=== PATIENT | male | born 1970 | race Two or more races ===

== ENCOUNTER → 2022-10-18 | Outpatient (CLI) | payer MEDICAID ==
[2022-10-18 12:03] LABS: BUN/Creatinine Ratio 17.8 (10.0-20.0); Calcium 9.4 mg/dL (8.5-10.1); Potassium 4.1 mmol/L (3.5-5.1)
== END | disposition home or self-care (01) ==
LOC: LAB 09:49
PROVIDERS: ATTEND Urology
DX: N40.1 Benign prostatic hyperplasia with lower urinary tract symptoms (principal)
CPT/HCPCS: 36415; 80048; 84153

== ENCOUNTER 2022-12-25 10:49 | Emergency (ER) | payer MEDICAID ==
[~2022-12-25] VITALS: Ht 170.2 cm; Wt 77.6 kg
[2022-12-25 11:50] VITALS: BP 114/78
[2022-12-25] MEDS ORDERED: ZOFR4T PO (13:06)
[2022-12-25] MEDS ORDERED: DEXT60TA4 PO (13:06)
== END 2022-12-25 13:07 | disposition home or self-care (01) ==
LOC: ER 10:49
DX: U07.1 COVID-19 (principal); K21.9 Gastro-esophageal reflux disease without esophagitis; Z98.890 Other specified postprocedural states
CPT/HCPCS: 36415; 87426; 87804

== ENCOUNTER → 2023-01-18 | Outpatient (CLI) | payer MEDICAID ==
[~2023-01-18] MED LIST: DEXT60TA4 PO; ZOFR4T PO
[2023-01-18 09:09] LABS: Basophils # (auto) 0 10 ^3/uL (0-0.2); Basophils % (auto) 0.2 % (0.0-2.0); Eosinophils # (auto) 0.1 10 ^3/uL (0-0.8); Eosinophils % (auto) 1.7 % (0.0-7.0); Hematocrit 41.6 % (41.0-53.0); Hemoglobin 14.2 g/dL (13.5-17.5); Lymphocytes # (auto) 1.6 10 ^3/uL (0.4-5.4); Lymphocytes % (auto) 25.5 % (10.0-50.0); Mean Corpuscular Hemoglobin 30.1 pg (28.0-32.0); Mean Corpuscular Hgb Conc. 34.1 g/dL (32.0-36.0); Mean Corpuscular Volume 88.2 fL (80.0-100.0); Monocytes # (auto) 0.8 10 ^3/uL (0-1.3); Monocytes % (auto) 12.4 % (0.0-12.0); Neutrophils # (auto) 3.9 10 ^3/uL (1.6-8.6); Neutrophils % (auto) 60.2 % (37.0-80.0); Nucleated Red Blood Cells % 0.1 %; Red Blood Cells 4.72 10^6/uL (4.5-5.90); Red Cell Distribution Width 13.8 % (11.8-14.3); White Blood Cell 6.4 10^3/uL (4.4-10.8)
[2023-01-18 09:18] LABS: Urine Bacteria NONE SEEN /hpf (None Seen); Urine Blood Negative /uL (Negative); Urine Mucus FEW (None Seen); Urine Specific Gravity 1.014 (1.001-1.035); Urine WBC <1 /hpf (0 - 3)
[2023-01-18 09:45] LABS: Albumin 3.8 g/dL (3.4-5.0); Calcium 8.8 mg/dL (8.5-10.1); Potassium 4.3 mmol/L (3.5-5.1)
[2023-01-18 09:51] LABS: BUN/Creatinine Ratio 16.7 (10.0-20.0); Bilirubin, Total 0.4 mg/dL (0.2-1.0); Total Protein 8.3 g/dL (6.4-8.2)
== END | disposition home or self-care (01) ==
LOC: LAB 08:26
PROVIDERS: ATTEND Nurse Practitioner
DX: I10 Essential (primary) hypertension (principal); E78.5 Hyperlipidemia, unspecified; R73.9 Hyperglycemia, unspecified
CPT/HCPCS: 36415; 80053; 80061; 81001; 83036; 84443; 85025

== ENCOUNTER 2023-08-01 07:17 | Inpatient (IN) | payer MEDICAID ==
[2023-07-29 15:34] LABS: Urine Epithelial Cast None Seen /hpf (<5)
[2023-07-29 15:40] LABS: Basophils # (auto) 0 10 ^3/uL (0-0.2); Basophils % (auto) 0.3 % (0.0-2.0); Eosinophils # (auto) 0.1 10 ^3/uL (0-0.8); Eosinophils % (auto) 1.7 % (0.0-7.0); Hematocrit 42.2 % (41.0-53.0); Hemoglobin 14.3 g/dL (13.5-17.5); Lymphocytes # (auto) 2.1 10 ^3/uL (0.4-5.4); Lymphocytes % (auto) 29.9 % (10.0-50.0); Mean Corpuscular Hemoglobin 29.9 pg (28.0-32.0); Mean Corpuscular Hgb Conc. 33.8 g/dL (32.0-36.0); Mean Corpuscular Volume 88.4 fL (80.0-100.0); Monocytes # (auto) 0.8 10 ^3/uL (0-1.3); Monocytes % (auto) 11.4 % (0.0-12.0); Neutrophils % (auto) 56.7 % (37.0-80.0); Red Blood Cells 4.77 10^6/uL (4.5-5.90); Red Cell Distribution Width 14.3 % (11.8-14.3)
[2023-07-29 15:48] LABS: Urine Amorphous Crystal FEW /hpf (None Seen); Urine Bacteria NONE SEEN /hpf (None Seen); Urine Blood Negative /uL (Negative); Urine Clarity HAZY (Clear); Urine Color Yellow (Yellow); Urine Protein, UAD Negative (Negative); Urine Specific Gravity 1.019 (1.001-1.035); Urine Urobilinogen Normal (Negative); Urine WBC 1 /hpf (0 - 3)
[2023-07-29 16:03] LABS: INR 1.03 (0.9-1.15); Partial Thromboplastin Time 29.3 SEC (24.5-34.5); Prothrombin Time 10.8 sec (9.3-11.8)
[2023-07-29 16:34] LABS: Alanine Aminotransferase 37 U/L (7-40); Alkaline Phosphatase 74 U/L (46-116); Anion Gap 6 (5-15); Aspartate Aminotransferase 23 U/L (13-40); BUN/Creatinine Ratio 16.2 (10.0-20.0); Blood Urea Nitrogen 11 mg/dL (9-23); Calcium 8.9 mg/dL (8.7-10.4); Carbon Dioxide 27 mmol/L (20-30); Chloride 106 mmol/L (98-107); Glucose 99 mg/dL (74-106); Potassium 3.8 mmol/L (3.5-5.1); Sodium 139 mmol/L (136-145)
[2023-07-29 16:35] LABS: Albumin 4.6 g/dL (3.2-4.8); Bilirubin, Total 0.6 mg/dL (0.2-1.0); Total Protein 7.6 g/dL (5.7-8.2)
[~2023-08-01] VITALS: Ht 162.6 cm; Wt 76.6 kg
[~2023-08-01 07:17] MED LIST changes: -DEXT60TA4 PO; +OMEP-434 PO; -ZOFR4T PO
[2023-08-01] MEDS: FAMOTIDINE (10MG/ML) 2ML VL IV ONE (08:14)
[2023-08-01] MEDS ORDERED: fentaNYL CITRATE 100 MCG/2 ML VL ONE (08:18)
[2023-08-01] MEDS ORDERED: MIDAZOLAM HCL 2MG/2ML 2ml VIAL (1mg/ml) ONE (08:18)
[2023-08-01] MEDS ORDERED: MEPERIDINE HCL (50 MG/ML) 1 ML VIAL ONE (08:18)
[2023-08-01] MEDS ORDERED: KETOROLAC TROMETH 30 MG/ML 1ML VIAL ONE (08:19)
[2023-08-01] MEDS ORDERED: ONDANSETRON HCL 4 MG/2 ML VIAL ONE (08:19)
[2023-08-01] MEDS ORDERED: GLYCOPYRROLATE 0.2 MG/ML 1ML VIAL ONE (08:19)
[2023-08-01] MEDS ORDERED: PROPOFOL 10 MG/ML 20 ML IV ONE (08:19)
[2023-08-01] MEDS ORDERED: DexAMETHasone SOD PHOS 10MG/1ML VIAL INJ ONE (08:19)
[2023-08-01] MEDS ORDERED: LIDOCAINE 2% (LOCAL ANESTH.) PF 5ml SDV ONE (08:19)
[2023-08-01] MEDS ORDERED: ePHEDrine SULFATE 50 MG/ML AMP ONE (08:57)
[2023-08-01 09:14] VITALS: O2SAT 93
[2023-08-01] MEDS ORDERED: NITROGLYCERIN 0.4 MG SL TAB SL PRN (09:30)
[2023-08-01] MEDS ORDERED: ONDANSETRON HCL 4 MG/2 ML VIAL IV PRN ×2 (09:30→16:30)
[2023-08-01] MEDS ORDERED: MORPHINE SULFATE INJ 2 MG/ml SYRG IV PRN (09:30)
[2023-08-01] MEDS: HYDROmorphone HCL 2 MG/ML VL/or syr IV PRN (09:58)
[2023-08-01 13:12] VITALS: BP 102/64; PULSE 97; RESP 20; TEMP 98.1
[2023-08-01 13:15] VITALS: BP 107/63; PULSE 97; RESP 20; TEMP 98.1; O2SAT 98
[2023-08-01 16:55] VITALS: BP 107/63; PULSE 76; RESP 18; TEMP 97.3; O2SAT 96
[2023-08-01] MEDS: MORPHINE SULFATE INJ 2 MG/ml SYRG IV PRN (17:13)
[2023-08-01] MEDS: cefTRIAXone 1GM/50ML D5W 50 ML IV ONE (17:14)
[2023-08-01] MEDS: HYDROcodone-ACET 5/325MG TAB PO PRN (18:23)
[2023-08-01 20:00] VITALS: BP 104/60; PULSE 64; RESP 18; TEMP 98.9; O2SAT 98
[2023-08-01] MEDS: ACETAMINOPHEN 325 MG TAB PO PRN (21:45)
[2023-08-01 22:00] VITALS: BP 104/60; PULSE 64; RESP 18; TEMP 98.4; O2SAT 98
[2023-08-02 05:00] VITALS: BP 83/44; PULSE 70; RESP 18; TEMP 98.6; O2SAT 100
[2023-08-02 06:51] LABS: Basophils # (auto) 0 10 ^3/uL (0-0.2); Basophils % (auto) 0.1 % (0.0-2.0); Eosinophils # (auto) 0 10 ^3/uL (0-0.8); Eosinophils % (auto) 0.1 % (0.0-7.0); Hematocrit 38.7 % (41.0-53.0); Lymphocytes # (auto) 1.4 10 ^3/uL (0.4-5.4); Lymphocytes % (auto) 12.5 % (10.0-50.0); Mean Corpuscular Hemoglobin 29.8 pg (28.0-32.0); Mean Corpuscular Hgb Conc. 33.5 g/dL (32.0-36.0); Monocytes % (auto) 8.6 % (0.0-12.0); Neutrophils # (auto) 8.7 10 ^3/uL (1.6-8.6); Neutrophils % (auto) 78.7 % (37.0-80.0); Red Blood Cells 4.35 10^6/uL (4.5-5.90); Red Cell Distribution Width 14.2 % (11.8-14.3); White Blood Cell 11.1 10^3/uL (4.4-10.8)
[2023-08-02 07:11] LABS: Alanine Aminotransferase 27 U/L (7-40); Albumin 4.3 g/dL (3.2-4.8); Alkaline Phosphatase 66 U/L (46-116); Anion Gap 10 (5-15); Aspartate Aminotransferase 21 U/L (13-40); BUN/Creatinine Ratio 12.7 (10.0-20.0); Bilirubin, Total 0.9 mg/dL (0.2-1.0); Blood Urea Nitrogen 9 mg/dL (9-23); Calcium 9.4 mg/dL (8.5-10.1); Carbon Dioxide 23 mmol/L (20-30); Chloride 105 mmol/L (98-107); Glucose 105 mg/dL (74-106); Potassium 3.9 mmol/L (3.5-5.1); Sodium 138 mmol/L (136-145)
[2023-08-02 08:00] VITALS: BP 104/65; PULSE 61; RESP 14; TEMP 98.4; O2SAT 93
[2023-08-02 09:00] VITALS: BP 104/65; PULSE 61; RESP 12; TEMP 98.4; O2SAT 93
[2023-08-02] MEDS: cefTRIAXone 1GM/50ML D5W 50 ML IV SCH (10:02)
[2023-08-02] MEDS: PANTOPRAZOLE 40 MG TAB PO SCH (10:02)
[2023-08-02 12:56] VITALS: BP 110/66; PULSE 72; RESP 18; TEMP 97.5; O2SAT 95
[2023-08-02 15:22] VITALS: BP 112/71; PULSE 61; RESP 16; TEMP 36.4; O2SAT 96
[2023-08-02 16:52] VITALS: BP 103/68; PULSE 58; RESP 18; TEMP 97.6; O2SAT 94
== END 2023-08-02 16:00 | disposition home or self-care (01) | DRG 501 ==
LOC: SUR 07:17 → OVERFLOW 09:17 → WEST WING 13:54
PROVIDERS: ADMIT Urology; ATTEND Urology
PROC: 0T7D8DZ Dilation of Urethra with Intraluminal Device, Via Natural or Artificial Opening Endoscopic (ICD-10-PCS; principal; 2023-08-01 08:37)
DX: N40.1 Benign prostatic hyperplasia with lower urinary tract symptoms (principal); K29.70 Gastritis, unspecified, without bleeding; N35.919 Unspecified urethral stricture, male, unspecified site; R35.1 Nocturia; N39.498 Other specified urinary incontinence; R30.0 Dysuria
CPT/HCPCS: 36415; 80053; 81001; 85025; 85610; 85730; 87086; G0378; J1100; J1885; J2001; J2250; J2405; J2704; J3490

== ENCOUNTER → 2023-08-26 | Outpatient (CLI) | payer MEDICAID ==
[2023-08-26 09:22] LABS: Basophils # (auto) 0 10 ^3/uL (0-0.2); Basophils % (auto) 0.3 % (0.0-2.0); Eosinophils # (auto) 0.3 10 ^3/uL (0-0.8); Eosinophils % (auto) 5.6 % (0.0-7.0); Hematocrit 43.3 % (41.0-53.0); Hemoglobin 14.2 g/dL (13.5-17.5); Lymphocytes # (auto) 2.2 10 ^3/uL (0.4-5.4); Lymphocytes % (auto) 37.4 % (10.0-50.0); Mean Corpuscular Hemoglobin 29.2 pg (28.0-32.0); Mean Corpuscular Hgb Conc. 32.8 g/dL (32.0-36.0); Mean Corpuscular Volume 88.9 fL (80.0-100.0); Monocytes # (auto) 0.7 10 ^3/uL (0-1.3); Monocytes % (auto) 11.3 % (0.0-12.0); Neutrophils # (auto) 2.7 10 ^3/uL (1.6-8.6); Neutrophils % (auto) 45.4 % (37.0-80.0); Nucleated Red Blood Cells % 0.1 %; Red Blood Cells 4.86 10^6/uL (4.5-5.90); Red Cell Distribution Width 14.1 % (11.8-14.3)
[2023-08-26 10:16] LABS: Urine Bacteria NONE SEEN /hpf (None Seen); Urine Blood 1+ /uL (Negative); Urine Clarity Clear (Clear); Urine Color Yellow (Yellow); Urine Mucus FEW (None Seen); Urine Protein, UAD TRACE (Negative); Urine Specific Gravity 1.027 (1.001-1.035); Urine Urobilinogen Normal (Negative); Urine WBC 1 /hpf (0 - 3); Urine pH 5.5 (5.0-8.0)
[2023-08-26 10:32] LABS: Alanine Aminotransferase 71 U/L (7-40); Albumin 4.5 g/dL (3.2-4.8); Alkaline Phosphatase 85 U/L (46-116); Anion Gap 6 (5-15); BUN/Creatinine Ratio 17.1 (10.0-20.0); Bilirubin, Total 0.6 mg/dL (0.2-1.0); Blood Urea Nitrogen 13 mg/dL (9-23); Calcium 9.2 mg/dL (8.5-10.1); Carbon Dioxide 27 mmol/L (20-30); Chloride 108 mmol/L (98-107); Cholesterol 188 mg/dL (< 200); Glucose 92 mg/dL (74-106); HDL Cholesterol 41 mg/dL (40-59); LDL Cholesterol 141 mg/dL (< 100); Potassium 3.9 mmol/L (3.5-5.1); Sodium 141 mmol/L (136-145); Total Protein 7.1 g/dL (5.7-8.2); Triglycerides 63 mg/dL (< 150)
[2023-08-26 10:48] LABS: Aspartate Aminotransferase 42 U/L (13-40)
== END | disposition home or self-care (01) ==
LOC: LAB 08:45
PROVIDERS: ATTEND Nurse Practitioner
DX: I10 Essential (primary) hypertension (principal); E78.5 Hyperlipidemia, unspecified
CPT/HCPCS: 36415; 80053; 80061; 81001; 83036; 84153; 84443; 85025

== ENCOUNTER 2024-05-28 08:35 | Emergency (ER) | payer MEDICAID ==
[~2024-05-28] VITALS: Ht 162.6 cm; Wt 79.7 kg
[2024-05-28 08:55] VITALS: RESP 18
[2024-05-28 09:05] VITALS: BP 142/86; PULSE 63; O2SAT 96
--- NOTE | 2024-05-28 09:08 | ED.PDOC ---
History of Present Illness HPI Comments A 53 YEAR OLD MALE PRESENTS TO THE ED WITH COMPLAINT OF RIGHT FINGERS LOCKED UP. PATIENT REPORTS THAT HE HAD WOKEN UP AT 1AM WITH HIS RIGHT MIDDLE AND RING FINGERS LOCKED INTO PLACE, BEING UNABLE TO STRETCH THEM OUT AND CAUSING PAIN WHEN ATTEMPTING TO DO SO. PATIENT RELAYS THAT HE HAS NOT INJURED HIS HAND AT ALL AND DID NOT FALL ONTO IT. PATIENT DENIES NUMBNESS, WEAKNESS, TINGLING, OR OTHER COMPLAINTS. NO OTHER SYMPTOMS OR MODIFYING FACTORS AT THIS TIME. Chief Complaint: Upper Extremity Time Seen by MD: 09:05 Reviewed Notes: Nurses Notes, Medications, Allergies Allergies: Coded Allergies: No Known Drug Allergy (Verified Allergy, Unknown, 12/25/22) Home Meds Active Scripts Baclofen (Baclofen) 10 Mg Tab, 10 MG PO BID, #20 TAB Prov:SHELLY BISWAS 05/28/24 Naproxen (Naproxen) 500 Mg Tab, 500 MG PO BID, #20 TAB Prov:SHELLY BISWAS 05/28/24 Reported Medications Omeprazole Magnesium (Omeprazole) 20 Mg Tab, 40 MG PO PRN, TAB 07/29/23 Information Source: Patient Mode of Arrival: Ambulatory Severity: Moderate Timing: Hours Duration: Since onset Prehospital treatment: None Medication Refill: For: Other (RIGHT 3RD/4TH FINGER SPASM ) Past Medical History PAST MEDICAL HISTORY: Anxiety Surgical History: Denies all surgeries Family History Family History: Reviewed,noncontributory to illness Social History Smoker: Non-Smoker Alcohol: Denies ETOH Use Drugs: Denies Drug Use Lives In: Home Constitutional: reports: others (ANXIOUS ); denies: chills, diaphoresis, fatigue, fever, malaise, sweats, weakness EENTM: denies: blurred vision, double vision, ear bleeding, ear discharge, ear drainage, ear pain, ear ringing, eye pain, eye redness, hearing loss, mouth pain, mouth swelling, nasal discharge, nose bleeding, nose congestion, nose pain, photophobia, tearing, throat pain, throat swelling, voice changes, others Respiratory: denies: cough, hemoptysis, orthopnea, SOB at rest, shortness of breath, SOB with excertion, stridor, wheezing, others Cardiovascular: denies: chest pain, dizzy spells, diaphoresis, Dyspnea on exertion, edema, irregular heart beat, left arm pain, lightheadedness, palpitations, PND, syncope, others Gastrointestinal: denies: abdomen distended, abdominal pain, blood streaked bowels, constipated, diarrhea, dysphagia, difficulty swallowing, hematemesis, melena, nausea, poor appetite, poor fluid intake, rectal bleeding, rectal pain, vomiting, others Genitourinary: denies: burning, dysuria, flank pain, frequency, hematuria, incontinence, penile discharge, penile sore, pain, testicle pain, testicle swelling, urgency, others Neurological: denies: dizziness, fainting, headache, left sided numbness, left sided weakness, numbness, paresthesia, pre-existing deficit, right sided numbness, right sided weakness, seizure, speech problems, tingling, tremors, weakness, others Musculoskeletal: reports: muscle pain (RIGHT 3RD/4TH FINGER ), others (RIGHT MIDDLE AND RING FINGER SPASM); denies: back pain, gout, joint pain, joint swelling, muscle stiffness, neck pain Integumetry: denies: bruises, change in color, change in hair/nails, dryness, laceration, lesions, lumps, rash, wounds, others Allergic/Immunocompromised: denies: Difficulty Healing, Frequent Infections, Hives, Itching, others Hematologic/Lymphatic: denies: anemia, blood clots, easy bleeding, easy bruising, swollen glands, others Endocrine: denies: excessive hunger, excessive sweating, excessive thirst, excessive urination, flushing, intolerance to cold, intolerance to heat, unexplained weight gain, unexplained weight loss, others Psychiatric: denies: anxiety, bipolar disorder, depression, hopeless, panic disorder, schizophrenia, sleepless, suicidal, others All Other Systems: Reviewed and Negative Physical Exam General Appearance: No Apparent Distress, Normal HEENT: Normal ENT Inspection, PERRL/EOMI Neck: Full Range of Motion, Non-Tender, Normal, Normal Inspection Respiratory: Chest Non-Tender, Lungs Clear, No Accessory Muscle Use, No Respiratory Distress, Normal Breath Sounds Cardiovascular: No Edema, No JVD, No Murmur, No Gallop, Normal Peripheral Pulses, Regular Rate/Rhythm Breast Exam: Deferred Gastrointestinal: No Organomegaly, Non Tender, No Pulsatile Mass, Normal Bowel Sounds, Soft Genitalia: Deferred Pelvic: Deferred Rectal: Deferred Extremities: Decreased range of motion, No calf tenderness, Normal capillary refill, Normal inspection, No pedal edema, Tender (AND SPASM ON RIGHT 3RD/4TH FINGERS, NO BONY TENDERNESS, SWELLING AND DEFORMITY. ) Musculoskeletal : Apperance: Normal Neurologic: Alert, garment steamer II-XII nml as Tested, No Motor Deficits, Normal Affect, Normal Mood, No Sensory Deficits Cerebellar Function: Normal Reflexes: Normal Skin: Dry, Normal Color, Warm Peripheral Pulses: 2+ carotid (R), 2+ carotid (L), 2+ Radial (R), 2+ Radial (L) Lymphatic: No Adenopathy Was a procedure done? Was a procedure done?: No Differential Dx Considerations may include: HYPERVENTILATION SYNDROME CARPAL SPASM OF RIGHT HAND X-Ray, Labs, Meds, VS Vital Signs Date Time Temp Pulse Resp B/P (MAP) Pulse Ox O2 Delivery O2 Flow Rate FiO2 05/28/24 09:05 63 96 Room Air 05/28/24 09:05 63 142/86 (104) 96 05/28/24 08:55 98.1 63 18 142/86 (104) 96 Current Medications Medications (Trade) Dose Ordered Sig/Colin Route Start Time Stop Time Status Last Admin Lorazepam (Ativan Inj) 1 mg ONCE ONCE IM 05/28/24 09:15 05/28/24 09:16 DC 05/28/24 09:20 X-Ray, Labs, Meds, VS Comment TREATMENT: ATIVAN 1MG AFTER MEDICATION WAS GIVEN, PATIENT WAS ABLE TO MOVE RIGHT HAND WITH NORMAL RANGE OF MOTION. Time of 1ST Reevaluation: 10:00 Reevaluation 1ST: Improved Patient Education/Counseling: Diagnosis, Treatment, Need For Follow Up Family Education/Counseling: Diagnosis, Treatment, Need For Follow Up Medical Screening: No EMC Exist At This Time Departure 1 Departure Time of Disposition: 10:00 Impression: Primary Impression: Hyperventilation syndrome Additional Impression: Muscle spasm Disposition: 01 HOME / SELF CARE / HOMELESS Condition: Stable Additional Instructions: FOLLOW-UP WITH PCP IN 1 TO 2 DAYS. TAKE MEDICATIONS PRESCRIBED. RETURN TO ED FOR ANY NEW OR WORSENING SYMPTOMS. e-Prescriptions Baclofen (Baclofen) 10 Mg Tab 10 MG PO BID, #20 TAB Prov: SHELLY BISWAS 05/28/24 Naproxen (Naproxen) 500 Mg Tab 500 MG PO BID, #20 TAB Prov: SHELLY BISWAS 05/28/24 Discharged With: Self, Relative Critical Care Note Critical Care Time?: No Stability Stability form required: No Heart Score Heart Score: Heart Score Response (Comments) Value History N/A 0 EKG N/A 0 Age N/A 0 Risk Factors N/A 0 Troponin N/A 0 Total 0 I personally scribed for SHELLY BISWAS ([email or web address]) on 05/28/24 at 09:08. Electronically submitted by Rigoberto Ann ([email or web address]). I personally scribed for SHELLY BISWAS ([email or web address]) on 05/28/24 at 09:11. Electronically submitted by Rigoberto Ann ([email or web address]). I personally scribed for SHELLY BISWAS ([email or web address]) on 05/28/24 at 09:25. Electronically submitted by Rigoberto Ann ([email or web address]). SHELLY BISWAS May 28, 2024 09:08
[2024-05-28] MEDS: LORazepam 2MG/ML-1ML VIAL IM ONE (09:20)
[2024-05-28] MEDS ORDERED: BACL10TA PO (09:57)
[2024-05-28] MEDS ORDERED: NAPR-746 PO (09:57)
== END 2024-05-28 10:00 | disposition home or self-care (01) ==
LOC: ER 08:35
DX: M62.838 Other muscle spasm (principal); F41.9 Anxiety disorder, unspecified; F45.8 Other somatoform disorders
CPT/HCPCS: 96372; 99283; J2060